=== PATIENT | female | born 1960 | race American Indian/Alaskan Native ===

== ENCOUNTER 2025-07-08 14:05 | Emergency (ER) | payer SELFPAY ==
[~2025-07-08] VITALS: Ht 157.5 cm; Wt 79.0 kg
[2025-07-08 14:13] VITALS: O2SAT 99
[2025-07-08] MEDS: LIDOCAINE HCL 1% 20ML VIAL INFIL ONE (16:54)
[2025-07-08] MEDS: IBUPROFEN 600MG TABLET PO ONE (16:54)
[2025-07-08] MEDS ORDERED: AMOX1TAB16 MT (17:07)
[2025-07-08] MEDS ORDERED: TOPUD MT (17:07)
[2025-07-08] MEDS ORDERED: BO1 TP (17:08)
[2025-07-08 17:37] VITALS: BP 145/73; PULSE 83; RESP 18; TEMP 36.9; O2SAT 99
== END 2025-07-08 17:48 | disposition home or self-care (01) ==
LOC: ER 14:05
DX: S61.215A Laceration without foreign body of left ring finger without damage to nail, initial encounter (principal); W54.0XXA Bitten by dog, initial encounter; Y93.89 Activity, other specified; Y92.89 Other specified places as the place of occurrence of the external cause; Y99.8 Other external cause status
CPT/HCPCS: 99283; 12001; J2003

== ENCOUNTER 2025-07-18 14:39 | Emergency (ER) | payer SELFPAY ==
[~2025-07-18] VITALS: Ht 157.5 cm; Wt 84.0 kg
[~2025-07-18 14:39] MED LIST: AMOX1TAB16 MT; BO1 TP; TOPUD MT
[2025-07-18 14:40] VITALS: O2SAT 96
[2025-07-18 14:45] VITALS: BP 123/77; PULSE 84; RESP 18; TEMP 36.7; O2SAT 99
== END 2025-07-18 15:15 | disposition home or self-care (01) ==
LOC: ER 14:39
DX: S61.210D Laceration without foreign body of right index finger without damage to nail, subsequent encounter (principal); X58.XXXD Exposure to other specified factors, subsequent encounter
CPT/HCPCS: 99282